=== PATIENT | male | born 1985 | race American Indian/Alaskan Native ===

== ENCOUNTER 2017-08-30 19:39 | Emergency (ER) | payer SELFPAY | END 2017-08-30 20:28 | disposition left against medical advice (07) | LOC: ED 19:39 | DX: I10 Essential (primary) hypertension (principal); Z53.21 Procedure and treatment not carried out due to patient leaving prior to being seen by health care provider ==

== ENCOUNTER 2019-05-02 20:01 | Emergency (ER) | payer SELFPAY ==
--- NOTE | 2019-05-02 20:12 | Event Note ---
ED Screening Note Date of service: 05/02/19 Time: 20:09 ED Screening Note: 33 y o male was working at home on a cut off saw tender metal and accidentally cut his finger This initial assessment/diagnostic orders/clinical plan/treatment(s) is/are subject to change based on patients health status, clinical progression and re- assessment by fellow clinical providers in the ED. Further treatment and workup at subsequent clinical providers discretion. Patient/guardian urged not to elope from the ED as their condition may be serious if not clinically assessed and managed. Initial orders include: xr
--- NOTE | 2019-05-02 20:54 | XRay Report ---
XR finger(s) 2+V LT INDICATION: lac/assess FB. COMPARISON: None available. FINDINGS: There is some radiopaque foreign material in the index finger along the radial aspect of the proximal phalanx shaft. It is an adjacent nondisplaced fracture of the radial cortex of the proximal phalange al shaft. Signer Name: Cristobal Rivera MD Signed: 05/02/2019 8:50 PM Workstation Name: [id number]
[2019-05-02] MEDS ORDERED: NACL 0.9% 500 ML IR ONE (21:37)
[2019-05-02] MEDS ORDERED: XYLOCAINE 2% INFILTRATI STA (22:05)
[2019-05-02] MEDS ORDERED: NACL 0.9% IR ONE (22:21)
[2019-05-02] MEDS ORDERED: ANCEF IM ONE (23:13)
[2019-05-02] MEDS ORDERED: BOOSTRIX IM ONE (23:13)
[2019-05-02] MEDS ORDERED: MARCAINE 0.5% INFILTRATI ONE (23:17)
--- NOTE | 2019-05-03 00:38 | Emergency Department Report ---
Upper Extremity - HPI Chief Complaint: Laceration/Recheck/Suture Stated Complaint: FINGER LAC Time Seen by Provider: 05/02/19 20:08 Upper Extremity: Right Index Finger Occurred When: Today Mechanism: Other (was using a tool grinder to fix a trailer and some unknown fashion and [place] contacted his finger resulting in a laceration) Severity: moderate Symptoms: Yes Pain with Movement, Yes Laceration or Abrasion, No Limited Range of Movement, No Numbness, No Weakness, No Swelling, No Bruising/Ecchymosis ED Review of Systems ROS: Stated complaint: FINGER LAC Other details as noted in HPI Comment: All other systems reviewed and negative ED Past Medical Hx - Past Medical History Previous Medical History?: Yes Hx Hypertension: Yes - Social History Smoking Status: Current Every Day Smoker Substance Use Type: Marijuana - Medications Home Medications: Home Medications Medication Instructions Recorded Confirmed Last Taken Type Acetaminophen/Codeine [Tylenol #3] 1 tab PO Q6H PRN #15 tab 05/03/19 Unknown Rx Chlorhexidine Gluconate [Hibiclens] 10 ml TP BID #240 liquid 05/03/19 Unknown Rx cephALEXin [Keflex] 500 mg PO Q6HR #40 capsule 05/03/19 Unknown Rx Upper Extremity Exam - Exam General: Vital signs noted. No distress. Alert and acting appropriately. Head and Torso: No HEENT Abnormality, No Neck Tenderness, No Chest/Lungs Abnormality, No Abdominal Tenderness, No Back Tenderness Hand: Yes Hand Tenderness, Yes Normal ROM in Digit(s), No Hand Deformity, No Digit Tenderness, No Digit(s) Deformity, No Tendon Dysfunction CMS Exam: Yes Broken Skin, Yes Normal Distal Pulses, Yes Normal Capillary Refill Hand L/R Front: 1 - Jagged irregular laceration full thickness with multiple areas of black for eign body debris noted. Has a pulsatile bleeder as well ED Course Vital Signs 05/02/19 20:14 Temperature 99.4 F Pulse Rate 95 H Respiratory 18 Rate Blood Pressure 227/138 O2 Sat by Pulse 97 Oximetry - Procedure Description Procedures done: 5 cm laceration of the finger repair area was prepped and draped in sterile fashion, irrigated with copious amounts saline. Multiple fragments of foreign body were removed, which appeared to be the remaining tool grinder. The pulsatile bleeder was ligated for Vicoprofen. The wound was closed with a 3-year-old arianna in simple interrupted fashion 5. Critical care attestation.: If time is entered above; I have spent that time in minutes in the direct care of this critically ill patient, excluding procedure time. ED Disposition Clinical Impression: Finger fracture, Finger laceration Disposition: - TO HOME OR SELFCARE Is pt being admited?: No Does the pt Need Aspirin: No Condition: Stable Instructions: Finger Laceration (ED), Laceration (ED), Suture Care (ED) Referrals: PRIMARY CARE, [Primary Care Provider] - 3-5 Days [facility] [Provider Group] - 3-5 Days (Patient should've follow- up with her primary care provider or service medical in 10 days for evaluation for suture removal)
[2019-05-03] MEDS ORDERED: TRIPLE ANTIBIOTIC TP ONE ×2 (01:34→02:00)
[2019-05-03 02:02] VITALS: BP 190/108
== END 2019-05-03 02:05 | disposition home or self-care (01) ==
LOC: ED 20:01
DX: S61.220A Laceration with foreign body of right index finger without damage to nail, initial encounter (principal); I10 Essential (primary) hypertension; F17.200 Nicotine dependence, unspecified, uncomplicated; F12.10 Cannabis abuse, uncomplicated; Z79.899 Other long term (current) drug therapy; W26.8XXA Contact with other sharp object(s), not elsewhere classified, initial encounter; Y93.89 Activity, other specified; Y92.89 Other specified places as the place of occurrence of the external cause; Y99.8 Other external cause status
CPT/HCPCS: 12042; 73140; 90471; 90715; 96372; 99283; J0690; A6250